=== PATIENT | female | born 1930 | race Caucasian/White ===

== ENCOUNTER 2017-07-11 10:05 | Outpatient (CLI) | payer MEDICARE, OTHER ==
[2017-07-11 17:46] LABS: GLUCOSE, URINE (UA) NEGATIVE (NEGATIVE); KETONES,URINE (UA) TRACE mg/dL (NEGATIVE); LEUKOCYTE ESTERASE, URINE NEGATIVE (NEGATIVE); NITRITE,URINE NEGATIVE (NEGATIVE); OCCULT BLOOD,URINE TRACE-INTA (NEGATIVE); PROTEIN,URINE 30 mg/dL (NEGATIVE); UROBILINOGEN,URINE 0.2 (NORMAL) E.U./dL (NORMAL)
[2017-07-11 17:55] LABS: BILIRUBIN,URINE NEGATIVE (NEGATIVE); CLARITY,URINE CLEAR (CLEAR); ICTOTEST,URINE NEGATIVE
[2017-07-11 18:03] LABS: BACTERIA,URINE Few /HPF (None Seen); RBC,URINE 0-5 /HPF (0-5); SQUAMOUS EPITHELIAL CELL,UR MOD Squamous (<= Few)
[2017-07-11 18:04] LABS: MUCUS,URINE Moderate Strands
== END 2017-07-11 10:06 | disposition home or self-care (01) ==
LOC: LAB.R 10:05
PROVIDERS: ATTEND Nurse Practitioner Family
DX: R32 Unspecified urinary incontinence (principal)
CPT/HCPCS: 81001; 87086

== ENCOUNTER 2017-07-11 11:07 | Outpatient (CLI) | payer MEDICARE, OTHER ==
--- NOTE | 2017-07-11 20:03 | XRAY Report ---
DATE OF SERVICE: 07/11/2017 TWO VIEW CHEST: 07/11/2017 CLINICAL INDICATION: Pulmonary fibrosis. COMPARISON: 09/05/2012 Frontal and lateral views of the chest demonstrate a normal cardiac silhouette. Hiatal hernia is again noted. Fibrotic changes in the lungs appear stable. No new consolidation, effusion, or pneumothorax is present. IMPRESSION: Stable pulmonary fibrosis. TD: 07/11/2017 21:02
== END 2017-07-11 11:08 | disposition home or self-care (01) ==
LOC: DI 11:07
PROVIDERS: ATTEND Nurse Practitioner Family
DX: J84.10 Pulmonary fibrosis, unspecified (principal); R32 Unspecified urinary incontinence; K44.9 Diaphragmatic hernia without obstruction or gangrene
CPT/HCPCS: 71046; 81001; 87086

== ENCOUNTER 2017-08-15 14:13 | Outpatient (CLI) | payer MEDICARE, OTHER ==
[2017-08-15 17:30] LABS: BASOPHILS % (AUTO) 0.8 %; EOSINOPHILS % (AUTO) 2.2 %; HGB - HEMOGLOBIN 10.3 g/dL (12.0-16.0); LYMPHOCYTES # (AUTO) 0.8 10^3/uL (1.5-3.5); LYMPHOCYTES % (AUTO) 36.1 %; MEAN CORPUSCULAR HEMOGLOBIN 28.9 pg (27.0-31.0); MEAN CORPUSCULAR HGB CONC 32.9 g/dL (32.0-36.0); MEAN CORPUSCULAR VOLUME 87.7 fL (81.0-99.0); MEAN PLATELET VOLUME 8.9 fL (7.9-10.8); MONOCYTES # (AUTO) 0.4 10^3/uL (0.0-1.0); MONOCYTES % (AUTO) 15.7 %; NEUTROPHILS % (AUTO) 45.2 %; PLT - PLATELET COUNT 182 10^3/uL (130-450); RED BLOOD COUNT 3.58 10^6/uL (4.20-5.40); RED CELL DISTRIBUTION WIDTH 15.5 % (12.0-15.0); WHITE BLOOD COUNT 2.3 x10^3/uL (4.8-10.8)
[2017-08-15 18:02] LABS: ALBUMIN/GLOBULIN RATIO 1.1 (1.0-2.2); ALKALINE PHOSPHATASE 65 IU/L (42-121); ALT ALANINE AMINOTRANSFERASE 10 IU/L (10-60); AST ASPARTATE AMINOTRANSFERASE 20 IU/L (10-42); BILIRUBIN,TOTAL 0.7 mg/dL (0.2-1.0); BUN - BLOOD UREA NITROGEN 8 mg/dL (6-20); CALCIUM 9.3 mg/dL (8.5-10.3); CARBON DIOXIDE - CO2 26 mmol/L (21-32); CHLORIDE 104 mmol/L (101-111); CHOL/HDL RATIO 2.4 (<4.4); CHOLESTEROL 157 mg/dL; GFR - MDRD 52 (>89); GLUCOSE 91 mg/dL (70-100); HDL CHOLESTEROL 65 mg/dL; LDL CHOLESTEROL,CALCULATED 73 mg/dL; LDL/HDL RATIO 1.1 (<4.4); SODIUM 139 mmol/L (135-145); TOTAL PROTEIN 7.6 g/dL (6.7-8.2); VLDL CHOLESTEROL 19 mg/dL
[2017-08-15 19:20] LABS: PLATELET MORPHOLOGY 1+ GIANT PLATELETS (NORMAL)
[2017-08-15 19:21] LABS: PLATELET ESTIMATE, MANUAL NORMAL (130-450,000) (NORMAL)
[2017-08-16 14:37] LABS: HEPATITIS A IGM NON-REACTIVE (NON-REACTIVE); HEPATITIS B CORE ANTIBODY IGM NON-REACTIVE (NON-REACTIVE); HEPATITIS B SURFACE ANTIGEN NON-REACTIVE (NON-REACTIVE); HEPATITIS C ANTIBODY NON-REACTIVE (NON-REACTIVE)
== END 2017-08-15 14:14 | disposition home or self-care (01) ==
LOC: LAB.F 14:13
PROVIDERS: ATTEND Specialist
DX: J44.9 Chronic obstructive pulmonary disease, unspecified (principal); R94.5 Abnormal results of liver function studies; K21.9 Gastro-esophageal reflux disease without esophagitis
CPT/HCPCS: 36415; 80053; 80061; 80074; 83721; 85025

== ENCOUNTER 2017-08-31 11:04 | Outpatient (CLI) | payer MEDICARE, OTHER ==
[2017-08-31] MEDS ORDERED: IOPAMIDOL-300 100 ML VIAL IVP ONE ×2 (11:05→13:29)
[2017-08-31 11:31] LABS: CREATININE 1.1 mg/dL (0.4-1.0)
[2017-08-31] MEDS ORDERED: IOPAMIDOL-300 50 ML VIAL ONE (11:34)
[2017-08-31] MEDS ORDERED: IOPAMIDOL-300 100 ML VIAL ONE (11:34)
[2017-08-31] MEDS ORDERED: IOPAMIDOL-300 50 ML VIAL PO ONE (13:29)
--- NOTE | 2017-08-31 14:29 | CT Preliminary Report ---
Exam: CT ABDOMEN/PELVIS W/ IMPRESSION: 1. Chronic lung disease. 2. Moderate hiatal hernia. 3. Remote ventral wall surgeries without recurrent perforation. 4. Right renal lithiasis. 5. Colonic diverticulosis. 6. 5 x 3 cm right ovarian cyst. Dedicated pelvic ultrasound should be considered to further evaluate . NAOMIA The call report notification system was initiated by Dr. Amanda Ferreira at 13:56 hrs on 08/31/17. The above findings were discussed with Kenneth Bangura by Dr. Amanda Ferreira at 14:27 hrs on 08/31/17. SITE ID: [id number]
--- NOTE | 2017-08-31 14:51 | CT Report ---
EXAM: CT ABDOMEN AND PELVIS EXAM DATE: 08/31/2017 01:14 PM. CLINICAL HISTORY: History of perforation. Abnormal LFTs. COMPARISONS: 01/05/2009. TECHNIQUE: Routine helical CT imaging was performed through the abdomen and pelvis. IV contrast: ISOV UE 300 80mL. Enteric contrast: Oral contrast. Reconstructions: Coronal and sagittal. In accordance with CT protocol optimization, one or more of the following dose reduction techniques w ere utilized for this exam: automated exposure control, adjustment of mA and/or KV based on patient s ize, or use of iterative reconstructive technique. FINDINGS: Lung Bases: Stable moderate hiatal hernia. Progression of extensive emphysematous changes. Stable 3 x 4 mm subpleural density medial aspect left lower lobe, benign. Liver: Normal. No masses. Gallbladder/Bile Ducts: Unremarkable. Spleen: Normal. Pancreas: Normal. Adrenal Glands: Normal. Kidneys: Small amount of cortical scarring superior pole right kidney. 4 mm stone in the inferior rig ht renal calyx. Several 2.5 cm and smaller renal cysts bilaterally. Renal cysts. No hydronephrosis nor solid renal mass lesions. Peritoneal Cavity/Bowel: Remote umbilical hernia repair. Postoperative changes right lower quadrant a bdominal wall stable. Multiple diverticula off the colon. No free fluid, free air or adenopathy. No m asses or acute inflammatory process. Appendix not visualized, but no inflammatory changes adjacent to cecum. Pelvic Organs: Interval development of a thin-walled water density right ovarian cyst measuring 5.0 x 3.0 cm. Left ovary is tiny. Uterus normal. No free fluid. Vasculature: No aneurysms or other significant abnormality. Bones: No significant abnormality. Other: None. IMPRESSION: 1. Chronic lung disease. 2. Moderate hiatal hernia. 3. Remote ventral wall surgeries without recurrent perforation. 4. Right renal lithiasis. 5. Colonic diverticulosis. 6. 5 x 3 cm right ovarian cyst. Dedicated pelvic ultrasound should be considered to further evaluate . NAOMIA The call report notification system was initiated by Dr. Amanda Ferreira at 13:56 hrs on 08/31/17. The above findings were discussed with Kenneth Bangura by Dr. Amanda Ferreira at 14:27 hrs on 08/31/17. Referring Provider Line: [phone] SITE ID: [id number]
== END 2017-08-31 11:05 | disposition home or self-care (01) ==
LOC: LAB 11:04 → DI 11:05
PROVIDERS: ATTEND Specialist
DX: J43.9 Emphysema, unspecified (principal); K44.9 Diaphragmatic hernia without obstruction or gangrene; N20.0 Calculus of kidney; K57.30 Diverticulosis of large intestine without perforation or abscess without bleeding; N83.201 Unspecified ovarian cyst, right side
CPT/HCPCS: 36415; 74177; 82565; Q9967